=== PATIENT | female | born 1955 | race Caucasian/White ===

== ENCOUNTER 2017-04-22 11:31 | Inpatient (IN) ==
[2017-04-22 12:54] LABS: MANUAL DIFF NEEDED? NO
[2017-04-22 12:59] LABS: BASO% 0.3 % (0.0-0.8); EOS# 0.01 X1000 (0.0-0.7); EOS% 0.1 % (0.0-10.0); HEMATOCRIT 40.8 % (37.0-47.0); HEMOGLOBIN 13.5 g/dL (12.0-16.0); IMM GRAN# 0.02 X1000 (0.0-0.04); IMM GRAN% 0.3 % (0.0-0.5); LYMPH# 1.09 X1000 (1.2-3.4); MCH 33.6 PG (27-31); MCHC 33.1 g/dL (33-37); MCV 101.5 FL (81-99); MONO% 5.9 % (1.7-9.3); MPV 10.7 FL (7.4-10.4); NEUT% 77.4 % (42.2-75.2); PLT 239 X1000 (130-400); RBC 4.02 XMIL (4.2-5.4)
[2017-04-22 13:03] LABS: INR 1.03; PROTIME 10.8 Seconds (9.2-11.7); PTT 27.5 Seconds (22.0-36.0)
--- NOTE | 2017-04-22 13:11 | Diag Imaging Result Doc PS360 ---
EXAM: CHEST-2 VIEWS HISTORY: dysphagia TECHNIQUE: COMPARISON: None. FINDINGS: The lungs are hyperexpanded. Mild increased AP diameter to the chest. There is an azygous fissure. This is a normal variant. The heart is not enlarged. The vessels are small. No pneumonia. No pleural effusions. IMPRESSION: I believe the patient has emphysema. Electronically signed by Gus Whitley 04/22/2017 1:09 PM
--- NOTE | 2017-04-22 13:14 | Diag Imaging Result Doc PS360 ---
EXAM: ABDOMEN FLAT/UPRIGHT HISTORY: dysphagia TECHNIQUE: COMPARISON: None. FINDINGS: No free air beneath the diaphragm. There are multiple surgical clips in the left abdomen. There are several surgical clips in the right abdomen as well. Sutures are found in the mid and lower left abdomen. No bowel obstruction. There is stool throughout the colon. No organomegaly. An inferior vena caval filter overlies the right side of the L2 and L3 vertebra. IMPRESSION: Mild constipation Electronically signed by Gus Whitley 04/22/2017 1:12 PM
[2017-04-22 13:18] LABS: AGAP 16; ALBUMIN 4.1 g/dL (3.5-5.0); ALKALINE PHOSPHATASE 90 U/L (32-104); BUN 10 mg/dL (8-22); CALCIUM 9.1 mg/dL (8.8-10.2); CHLORIDE 97 mmol/L (98-107); COSMO 273; GOT 22 U/L (10-30); GPT 16 U/L (10-36); MAGNESIUM 1.8 mg/dL (1.5-2.7); POTASSIUM 4.1 mmol/L (3.5-5.1); SODIUM 137 mmol/L (136-145); TCO2 24 mmol/L (25-35); TOTAL BILIRUBIN 1.98 mg/dL (0.20-1.00); TOTAL PROTEIN 6.9 g/dL (6.3-8.3)
[2017-04-22] MEDS ORDERED: DIPRIVAN 1% ONE (15:19)
--- NOTE | 2017-04-22 15:23 | OPERATIVE NOTE ---
PROCEDURE DATE: 04/22/2017 PROCEDURES: 1. Esophagoscopy and foreign body removal. 2. Esophageal dilation. PREOPERATIVE DIAGNOSIS: Foreign body impaction in the esophagus. POSTOPERATIVE DIAGNOSES: 1. Foreign body impaction in the esophagus. 2. Esophageal stricture. DESCRIPTION OF PROCEDURE: After informed consent and adequate intravenous sedation by Anesthesia, the scope was introduced in the esophagus. The patient had food impacted all the way to the proximal esophagus. The scope is changed to a double-channel and lavaged, and the material was carefully aspirated until 80% was done. The rest was gently pushed into the stomach. At this point, the scope was withdrawn. Esophageal dilation was done up to 54-Irish. The patient has had some sort of gastric surgery, about which we will inquire further. The scope was withdrawn. The patient tolerated the procedure and was transported back to the recovery area in satisfactory condition. RECOMMENDATION: She might need a followup endoscopy and dilation by Dr. Watkins. cc: MD Huey Wang MD Allen J. Schmidt, MD
[2017-04-22] MEDS: PROTONIX IV SCH (15:51)
[2017-04-22] MEDS: NS + KCL 20 MEQ 1,000 ML IV SCH ×3 (15:51→22:19)
[2017-04-22] MEDS: SODIUM CHLORIDE 0.9% INJ SCH (15:52)
[2017-04-22] MEDS ORDERED: ZOFRAN ONE (16:16)
[2017-04-22] MEDS ORDERED: DECADRON ONE (16:16)
[2017-04-22] MEDS: TYLENOL PO PRN (20:02)
[2017-04-22] MEDS: MIRALAX PO SCH (22:20)
[2017-04-23] MEDS: PROTONIX IV SCH (00:44)
[2017-04-23] MEDS: SODIUM CHLORIDE 0.9% INJ SCH (00:45)
[2017-04-23] MEDS: TYLENOL PO PRN (01:05)
[2017-04-23] MEDS: NS + KCL 20 MEQ 1,000 ML IV SCH ×3 (01:12→09:48)
[2017-04-23 05:24] LABS: URINE CULTURE NEEDED? NO; URINE MICRO REVIEW NEEDED? NO; URINE SOURCE CLEAN CATCH
[2017-04-23 05:26] LABS: BILIRUBIN URINE NEGATIVE (NEGATIVE); BLOOD URINE NEGATIVE (NEGATIVE); COLOR YELLOW; GLUCOSE URINE NEGATIVE (NEGATIVE); LEUKOCYTES URINE TRACE (NEGATIVE); NITRITE URINE NEGATIVE (NEGATIVE); PROTEIN URINE NEGATIVE (NEGATIVE); SP GRAVITY URINE 1.007; TURBIDITY URINE CLEAR (CLEAR); UROBILINOGEN URINE NORMAL (NORMAL)
[2017-04-23 05:28] LABS: UR EPITHELIAL CELLS <10 /HPF (<10); URINE BACTERIA NEGATIVE /HPF; URINE RBC <10 /HPF (<10); URINE WBC <10 /HPF (<10)
[2017-04-23 07:28] VITALS: BP 93/43
[2017-04-23] MEDS: MIRALAX PO SCH (09:48)
--- NOTE | 2017-04-23 12:24 | DISCHARGE SUMMARY ---
ADMISSION DATE: 04/22/2017 DISCHARGE DATE: 04/23/2017 HISTORY AND HOSPITAL COURSE: This is a 61-year-old who has a past medical history of Seth-en-Y, I believe, gastroplasty. She said she felt food not going down her esophagus 36 hours ago and just continued to have nausea. Not had anything in to drink or to eat. [place] very weak and persistent nausea, very uncomfortable. Admitted and Dr. Holbrook saw her. Did an EGD and he found a foreign body impaction in the esophagus, esophageal stricture. This was cleaned out. She will have to get dilatation, get follow up in a couple weeks. She plans on doing this with Dr. Watkins, I believe. We will put her on Protonix 40 mg a day. They did do noninvasive carotid studies and they were unremarkable. She takes MiraLAX just as needed. She takes her Synthroid 50 mcg daily. Takes iron carbonyl, ascorbic acid tablet 1 a day, 100 mg, Zyrtec once a day as needed. Of note, lab work was unremarkable. So plan to discharge 04/23/2017. Follow up with Dr. Watkins in 2 weeks. cc: MD Scooter Rao MD
--- NOTE | 2017-04-23 12:33 | HISTORY AND PHYSICAL ---
HISTORY OF PRESENT ILLNESS: The patient came to my office stating that about 36 hours prior she had been eating and the food did not go down. She has been miserable, nauseated. Has not had any liquids or food down. She has a history of having a Seth-en-Y gastroplasty years ago with good success, some osteoarthritis, and we have been supplementing her B12 and her iron. FAMILY HISTORY: Noncontributory. SOCIAL HISTORY: Negative for alcohol or tobacco. REVIEW OF SYSTEMS: General: No weight gain or loss. No fever or chills. She has been having some trouble with swallowing, with food getting stuck and dysphagia. No GI pain or epigastric pain. HEENT: Unremarkable. Respiratory: No increased work of breathing or dyspnea. Cardiovascular: No chest pain or tachy palpitation. Gastrointestinal/Genitourinary: As above. No gross hematuria or dysuria. PHYSICAL EXAMINATION: GENERAL: Well-developed, well-nourished, white female. VITAL SIGNS: Temperature 98.5 degrees, pulse 75, respirations 18, blood pressure 93/43. HEENT: Pupils are equal and round. LUNGS: Clear in all lung [place]. CARDIOVASCULAR: Regular rhythm and rate, without murmur or S3. ABDOMEN: Soft. SKIN: Warm and dry, very uncomfortable. LABORATORY: White count 6810, hematocrit 40, platelet count 239,000. Sodium 137, potassium 4.1, chloride 97, bicarbonate 24, BUN 10, and creatinine 0.6. Urinalysis unremarkable. Prothrombin time was 10.8 and PTT was 27. IMAGING: Abdominal x-ray: Mild constipation. Chest x-ray: Unremarkable, maybe some evidence of mild emphysema. ASSESSMENT AND PLAN: Foreign body, esophageal impaction. Consulted Dr. Holbrook, suspect to undergo EGD. cc: Leonid Rg MD
--- NOTE | 2017-04-25 00:31 | Carotid Study ---
DATE: 04/22/2017 PROCEDURE: Carotid duplex imaging. REFERRING PHYSICIAN: Leonid Rg MD INTERPRETING PHYSICIAN: Nicolás Diaz MD TECH: Abhilash INDICATIONS: Dysphagia. OBSERVED DATA RIGHT LEFT Brachial Blood Pressure Carotid Pulse Bruits: Carotid/Sub DIAGRAM OF ULTRASOUND IMAGING R L RIGHT INT EXT INT EXT LEFT Gerald (cm/s) Gerald (cm/s) Subclavian 82/0 Subclavian 104/0 CCA Proximal 77/19 CCA Proximal 102/26 CCA Distal 43/13 CCA Distal 57/20 Bulb 42/11 Bulb 51/14 ICA Proximal 45/18 ICA Proximal 43/16 ICA Mid 86/41 ICA Mid 69/30 ICA Distal 68/29 ICA Distal 80/34 ECA 47/11 ECA 46/9 Vertebral 55/14 Vertebral 61/20 ICA/CCA Ratio 1.1 ICA/CCA Ratio 0.8 % Stenosis 0-39% % Stenosis 0-39% FINDINGS: There is minimal atherosclerotic disease in the carotid systems bilaterally. There are no ulcerated plaques. There is antegrade vertebral flow bilaterally. PHYSICIAN INTERPRETATION: Unremarkable carotid imaging study. There are no hemodynamically significant lesions. cc: MD Leonid Higgins MD
== END 2017-04-23 13:07 | disposition home or self-care (01) ==
LOC: DIRADM 11:31 → 3N 12:10
PROVIDERS: ADMIT Emergency Medicine; ATTEND Emergency Medicine